=== PATIENT | female | born 1950 | race Caucasian/White ===

== ENCOUNTER 2020-11-21 15:09 | Outpatient (RCR) | payer MEDICARE, SELFPAY | END 2021-01-22 23:59 | LOC: IMMUN 15:09 | PROVIDERS: Referring Provider Family Medicine; Visit Provider Family Medicine | DX: Z23 Encounter for immunization (principal) | CPT/HCPCS: 0001A; 0002A; 91300 ==

== ENCOUNTER 2021-10-02 09:42 | Outpatient (CLI) | payer MEDICARE, SELFPAY ==
--- NOTE | 2021-10-02 09:50 | RAD_ITS ---
STUDY: X-RAY CHEST REASON FOR EXAM: Female, 71 years old. ASTHMA TECHNIQUE: PA and lateral views of the chest. COMPARISON: April 27, [address] chest FINDINGS: The lungs are clear and expanded. There is no demonstrated pleural abnormality. Normal size heart. Normal mediastinum and ericka. Normal visualized pulmonary arteries. Normal visualized aortic arch and descending thoracic aorta. There is levoscoliosis of the thoracolumbar junction. There is multilevel degenerative change. There is degenerative osteoarthritis of the bilateral shoulders. There is no demonstrated abnormality of the visualized soft tissue structures of the upper abdomen. RAD/Chest PA and Lateral IMPRESSION: No demonstrated acute cardiopulmonary process. Electronically Signed: Vanda Wang MD at 0:14 EST ,
== END 2021-10-02 23:59 | disposition home or self-care (01) ==
PROVIDERS: Referring Provider Internal Medicine Pulmonary Disease; Visit Provider Internal Medicine Pulmonary Disease
DX: J45.20 Mild intermittent asthma, uncomplicated (principal)
CPT/HCPCS: 71046

== ENCOUNTER → 2022-09-24 | Outpatient (CLI) | payer MEDICARE, SELFPAY ==
--- NOTE | 2022-09-24 12:06 | CT_ITS ---
STUDY: CT LUMBAR SPINE WITHOUT CONTRAST REASON FOR EXAM: Female, 72 years old. STENOSIS RADIATION DOSAGE (If Supplied By Facility): CTDIvol = ( 26.54 ) mGy, DLP = ( 910.39 ) mGycm TECHNIQUE: The patient was scanned in a multi detector CT scanner. High resolution transaxial imaging was performed. Images were obtained from L1 vertebrae to S1 vertebrae. Sagittal and coronal images were reconstructed. Individualized dose optimization techniques were used for this CT. COMPARISON: None FINDINGS: Normal lumbar lordosis. Marked degree of the levoconvex scoliosis. Multilevel spondylosis. L1-2: Marked degree of disc space narrowing. Spondylosis worse on the right sided midline. Facet joint osteoarthritis and hypertrophy worse on the right side. Moderate degree of right neural foraminal stenosis. L2-3: Moderate degree of disc space narrowing and spondylosis. Facet joint osteoarthritis and hypertrophy worse on the right. Moderate degree of right neural foraminal stenosis. Moderate degree of central canal stenosis. L3-4: Marked degree of disc space narrowing. Spondylosis. Facet joint osteoarthritis and hypertrophy worse on the left side with a moderate degree of left neural foraminal stenosis. Moderate degree of central canal stenosis. L4-5: Marked degree of disc space narrowing. Facet joint osteoarthritis hypertrophy worse on the left side with a severe degree of left neural foraminal stenosis. L5-S1: Moderate degree of central canal stenosis. Normal visualized paraspinous soft tissue structures. CT/Spine Lumbar without Contrast IMPRESSION: Multilevel degenerative changes, as described above. Multilevel neural foraminal central canal stenosis as described. Electronically Signed: Rich Neal MD at 13:43 EST ,
[2022-09-24 12:28] VITALS: BP 183/77; PULSE 58; RESP 16; TEMP 36.3; O2SAT 98; BMI 33.1
--- NOTE | 2022-09-24 12:37 | RAD_ITS ---
PROCEDURE: LUMBAR MYELOGRAM DATE OF EXAMINATION: 09/24/2022 INDICATION: Female, 72 years old. Low back pain. PHYSICIAN: Rich Neal M.D. CONSENT: The patient''s history and physical findings were reviewed. The lumbar myelogram procedure was discussed with the patient prior to signing a consent. SEDATION: Local anesthesia with 3 mL of 1% lidocaine was used. FLUOROSCOPY TIME (if supplied): (3:24) minutes/seconds. Injection Information: 0 Number of images obtained: 0 TECHNIQUE: Attempted lumbar puncture and myelogram procedure. Due to the patient''s marked degree of scoliosis and degenerative changes throughout the lumbar spine, access of the arachnoid space was not possible. RAD/Lumbar Myelogram IMPRESSION: Attempted lumbar myelogram. A CT scan will be performed. Electronically Signed: Rich Neal MD at 13:35 EST ,
[2022-09-24] MEDS: Lidocaine 2% (5ml sdv) 5 ML VIAL.MPF INFILT (12:45)
[2022-09-24 13:10] VITALS: BP 152/82; PULSE 56; RESP 16
--- NOTE | 2022-09-24 13:44 | NURSING ---
Dr. Neal unable to get into spinal canal to inject contrast due to pt's severe scoliosis. Pt aware myelogram was unsuccessful, pt had CT and then was discharged home. Instructions included watching out for signs of infection.
== END | disposition home or self-care (01) ==
PROVIDERS: PCP Registered Nurse
DX: M48.062 Spinal stenosis, lumbar region with neurogenic claudication (principal)
CPT/HCPCS: 62304; 72131

== ENCOUNTER 2023-03-19 08:00 | Outpatient (RCR) | payer MEDICARE, SELFPAY ==
--- NOTE | 2023-02-06 08:49 | HP.PTEVAL_ITS ---
Patient's Visit Information AMBER ORANTES is a 72 year old F referred to Physical Therapy by MATT Hudson with a diagnosis of Lumbar radiculopathy. Date of Evaluation: 02/05/23 Physical Therapist: Jose Henry DPT - Visit Plan Frequency: 3x /Week Duration: 4 Weeks Plan: Start with core and hip strengthening in pool. Pt. is familiar with the pool. Add in progressive strengthening as tolerated. - Subjective pt. is here today for her initial evaluation with diagnosis of lumbar radiculopathy. Pt. has has been having issues for a number of years, but has been progressively getting worse. Pt. has a history of scoliosis, and lumbar surgery. Pt. has doing injections a well, B knee replacements and R hip replacement. Pt. had previously worked out in local gym, but had to hold off due to B knee pain and low back pain. She met with her surgery who told her that surgery was not indicated at this point in time and he would like her to work on aquatic therapy to increase core and hip strengthening. Pt. is eager to get started. She reports constant pain in lumbar spine and RLE to her foot. Lifting and standing seem to be the worst with increasing her symptoms. She does feel weaker in her RLE, and does feel like her R leg will give out on her at times. She avoid stairs due to RLE weakness. Pt. is hopeful to reduce symptoms in order to get back to all recreational and gym activities without limitations. - Pain Lumbar spine Pain Intensity (Out of 10): 5 RLE Pain Intensity (Out of 10): 5 - Objective POSTURE: Pt. had general flexed posture. R lateral hip shift with trunk correction. PALPATION: Pt. has increased tenderness along lumbar spine and along B lumbar erector spinae. Pt. has some pain in her glute to palpation as well, R side. NEURO: Pt. has normal sensation in BLEs, decreased DTR 1+ throughout LEs. Pt. is able to rise on heels and toes. ROM: Lumbar spine: flexion min/mod loss increase NW, ext max loss increase NW, Sb mod loss B increase NW, rotation mod loss bilat increase NW. Pt. has tight B HSs as well. MMT: LLE: ankle 5/5 throughout; knee: ext 4+/5, flexion 4+/5; hip: flexion 4/5, abd 4/5. RLE: ankle 5/5 throughout; knee: ext 4/5; flexion 4/5; hip: flexion 3/5, abd 3/5. Core strength- poor. GAIT: pt. ambulates without AD, but has a marked shift with trunk correction, most likely due to her scoliosis. Pt. has decrased step length and increased lateral hip sway during stance phase. Stairs: step to pattern loading LLE only and use of 2 HR. - Balance/Special Test Scores Oswestry Low Back Score: 20 - Goals Goal 1:: LTG: Pt. to be I with HEP in aquatic setting. Goal Time Frame: 4-6 Weeks Goal 2:: STG: Pt. to have reduced pain in RLE and lumbar spine to 2-3/10 with all daily activities. Goal Time Frame: 2-4 Weeks Goal 3:: LTG: Pt. to have increased core and BLE strength by 1/2 grade throughout. Goal Time Frame: 4-6 Weeks Goal 4:: LTG: Pt. to start a progressive walking program with good tolerance. Goal Time Frame: 4-6 Weeks Goal 5:: LTG: Pt. to sleep throughout the night with 2-3/10 pain in RLE and lumbar spine. Goal Time Frame: 4-6 Weeks - Rehabilitation Potential Physical Therapy Diagnosis: Pt. has signs and symptoms consistent with lumbar radiculopathy with symptoms down her RLE. Pt. has marked loss of ROM, loss of BLE and core strength resulting in increased difficulty with all daily activities. Rehabilitation Potential: Good - Anticipated Interventions Patient/Client Instruction: Educate patient on: Condition, Plan of Care, Risk Factors, Benefits of Fitness Program For the Purpose of:: To improve decision making, To facilitate caregiver knowledge, To improve self management, To prevent re-injury, To improve ability to perform tasks related to life management Therapeutic Exercise to Include: Strength training, Power training, Body mechanics, Postural training, Flexibilty training, In an aquatic setting, Dynamic Lumbar Stabilization, Chuck Exercises For the Purpose of:: To decrease pain, To increase ROM, To improve nutrient delivery to tissue, To increase oxygenation perfusion, To improve muscle performance and motor function, To improve ability to perform ADL's, To increase tolerance to activity/condition/position, To improve performance and ind ependence with ADL's, To decrease soft tissue restriction, To increase flexibility/ROM Thank you for the opportunity to evaluate your patient. For Medicare and Medicare HMO plans, please review the plan of care and approve it. It will need to be FAXED BACK to us at [phone] for Medicare purposes. For Medicare only, by signing this I certify the plan of care. Please let me know if there are questions or concerns regarding this plan of care. Physician Signature: Date:
--- NOTE | 2023-03-06 08:30 | HP.PTREVAL ---
Re-Evaluation Intro: Hilda Mcdonnell, WELFARE CASE WORKER-C, It has been my pleasure to treat AMBER ORANTES over the last 11 visits for Lumbar radiculopathy. Please see the progress note below for an update on the physical therapy plan of care! Subjective Subjective: Pt. reports having 2/10 pain currently. Pt. reports mornings are a little bit more stiff, but loosens up as the day goes on. Objective Objective/Function: MMT: RLE: ankle 5/5 throughout; knee: ext 20.3#, flexion 16.4# LLE: ankle 5/5 throughout; knee: ext 22.9#, flexion 18.8# sleeping: pain still present but not as frequent. POSTURE: Pt. still has a lateral shift, again due to scoliosis. Cat is overall doing better. She would like to develop a land routine where she could do aquatic exercises x2 day per weeks and land x1. Plan Plan Plan: I will see cat for a few more visits working on hip and core strength on land to progress HEP. Balance/Gait/Functional tests Balance/Special Test Scores Oswestry Low Back Score: 11 Goals Goals Goal 1:: LTG: Pt. to be I with HEP in aquatic setting. Goal Time Frame: 4-6 Weeks Goal Progress: Goal Met Goal 2:: STG: Pt. to have reduced pain in RLE and lumbar spine to 2-3/10 with all daily activities. Goal Time Frame: 2-4 Weeks Goal Progress: Progressing Goal 3:: LTG: Pt. to have increased core and BLE strength by 1/2 grade throughout. Goal Time Frame: 4-6 Weeks Goal Progress: Progressing Goal 4:: LTG: Pt. to start a progressive walking program with good tolerance. Goal Time Frame: 4-6 Weeks Goal Progress: Progressing Goal 5:: LTG: Pt. to sleep throughout the night with 2-3/10 pain in RLE and lumbar spine. Goal Time Frame: 4-6 Weeks Goal Progress: Progressing Anticipated Interventions Anticipated Interventions Patient/Client Instruction: Educate patient on: Condition, Plan of Care, Risk Factors and Benefits of Fitness Program For the Purpose of:: To improve decision making, To facilitate caregiver knowledge, To improve self management, To prevent re-injury and To improve ability to perform tasks related to life management Therapeutic Exercise to Include: Strength training, Power training, Body mechanics, Postural training, Flexibilty training, In an aquatic setting, Dynamic Lumbar Stabilization and Chuck Exercises For the Purpose of:: To decrease pain, To increase ROM, To improve nutrient delivery to tissue, To increase oxygenation perfusion, To improve muscle performance and motor function, To improve ability to perform ADL's, To increase tolerance to activity/condition/position, To improve performance and independence with ADL's, To decrease soft tissue restriction and To increase flexibility/ROM Re-Evaluation Ending Re-evaluation ending: Please do not hesitate to contact me at [phone] by phone or if you have questions or concerns regarding this new plan of care! Sincerely, NICOLLE TaylorT
--- NOTE | 2023-03-19 08:33 | HP.PTDCSUM ---
Discharge Summary D/C summary: It has been my pleasure to treat AMBER ORANTES referred by Hilda Mcdonnell NP-C, with the diagnosis of Lumbar radiculopathy for a total of 13 visit(s). Discharge Date: 03/19/23 Please see the following information for a summary of their discharge status. Subjective Subjective: Pt. reports having soreness for ~ 30 minutes after last visit, but then resolved. Pt. reports no major issues this AM. Pain Lumbar spine: Pain Intensity (Out of 10): 1 RLE: Pain Intensity (Out of 10): 1 Overall Improvement % Improvement: 75 Objective Objective/Function: Pt. did well with all exercises this date. Pt. has a good aquatic and land program to complete now. Pt. reports no increase in symptoms with exercises this date. Pt. is to complete water x2 per week and land x1 going forward. At this point in time Pt. will be DC from PT to HEP. PT. consents. Goals Goal 1:: LTG: Pt. to be I with HEP in aquatic setting. Goal Progress: Goal Met Goal 2:: STG: Pt. to have reduced pain in RLE and lumbar spine to 2-3/10 with all daily activities. Goal Progress: Progressing Goal 3:: LTG: Pt. to have increased core and BLE strength by 1/2 grade throughout. Goal Progress: Goal Met Goal 4:: LTG: Pt. to start a progressive walking program with good tolerance. Goal Progress: Goal Met Goal 5:: LTG: Pt. to sleep throughout the night with 2-3/10 pain in RLE and lumbar spine. Goal Progress: Progressing Plan Plan: DC to HEP. D/C Information Discharge Comments: Pt. was treated initially in aquatic therapy then progressed to land. Pt. has good HEP for both at this point in time and was given ways to progress once ready. Pt. will be DC to those programs at this point in time. d/c sentence: If there are questions or concerns regarding this patient's physical therapy, please feel free to call me at [phone]. Thank you for the referral of this patient. Sincerely, Jose Sylvester Sipos, DPT Balance/Gait/Functional tests Balance/Special Test Scores Oswestry Low Back Score: 11
== END 2023-03-19 13:15 | disposition home or self-care (01) ==
LOC: PT 08:00
PROVIDERS: PCP Registered Nurse; Referring Provider Registered Nurse; Visit Provider Registered Nurse
DX: M54.16 Radiculopathy, lumbar region (principal)
CPT/HCPCS: 97110; 97113; 97161; 97164

== ENCOUNTER 2024-06-30 08:00 | Outpatient (RCR) | payer MEDICARE, SELFPAY ==
--- NOTE | 2024-04-12 09:00 | HP.PTEVAL_ITS ---
Patient's Visit Information Visit Information Visit Information: AMBER ORANTES is a 74 year old F referred to Physical Therapy by Dr. Nick Graham MD with a diagnosis of R reverse TSA, DOS: 03/28/24. Date of Evaluation: 04/12/24 Physical Therapist: Jose Henry DPT Visit Plan Frequency: 2x /Week Duration: 8 weeks Plan: 1)Start with Phase I and II of Santos's R RTS protocol. Starting with passive motion progressing as tolerated. Add in R elbow ROM as well. Pt's able to help with PROM at home as well. History of back surgery, difficulty lying full flat Pt. given AAROM shoulder ER and AAROM elbow flexion/ext for HEP. Added shoulder shrug, passive flexion and ER. May use ice as need for pain control. Subjective Subjective: Pt. is here today for her initial evaluation with diagnosis of R reverse TSA, DOS: 03/28/24. Pt. reports not having much pain, but is taking her pain medication as prescribed. Pt. denies N/T. She is sleeping okay, using reclining chair. Pt. reports overall doing well. Pt. is to follow up with physician in a few weeks. Pt. has been doing some passive ROM with and wrist mobility. Vonda reports having 4/10 pain in her shoulder and elbow today. She has been out of sling with her arm supported at home and has been doing some pendulums at home as well. Pt. is hopeful to get back to her pool exercises that she has been doing for her back. Pt. does have a history of Lumbar surgery as well. Pain R shoulder: Pain Intensity (Out of 10): 4 Pain Intensity Range: 2 and 6 R elbow: Pain Intensity (Out of 10): 1 Pain Intensity Range: 0 and 4 Objective Objective: POSTURE: Pt. has slight FH and thoracic kyphosis. Pt. is able to improve with VCing. R shoulder in guarded posture/ PALPATION: pt. has well healing incision. No signs of infection. She does have some marked swelling in her biceps and medial elbow. Bruising and R UT region. No signs of infection noted. NEURO: Pt. has normal sensation to light and sharp touch. DTR not tested in RUE. Normal in LUE. ROM: PROM: shoulder: flexion 90deg, ER to 5deg. Pain noted as limiting factor no hard end feel noted. Scaption 90deg. R elbow: flexion gradual improve ment to 110deg and extension lacking 8 deg. pain and tightness noted as limitations. MMT: DNT this date due to recent surgery. Balance/Special Test Scores Quick DASH Score: 79.5450 Goals Goal 1:: LTG: Pt. to be I with HEP for R shoulder PROM, AROM and eventually strengthening. Goal Time Frame: 6-8 Weeks Goal 2:: STG: Pt. to be able to sleep throughout the night without increase in R shoulder pain. Goal Time Frame: 2-4 Weeks Goal 3:: STG: Pt. to have PROM of R shoulder to 130deg of flexion, 30deg of ER at side. Goal Time Frame: 2-4 Weeks Goal 4:: LTG: Pt. to have R shoulder AROM symmetrical to L side allowing for increased ability to complete all ADLs. Goal Time Frame: 6-8 Weeks Goal 5:: LTG: Pt. to have symmetrical strength between B shoulders without increase in symptoms. Goal Time Frame: 8-12 Weeks Rehabilitation Potential Physical Therapy Diagnosis: Pt. has signs and symptoms consistent with R reverse TSA, DOS 03/28/24. Pt. has marked hypomobility, weakness, edema and difficulty with ADLs. Pt. would benefit from PT to address the above limitations progressing back to all previous activities. Rehabilitation Potential: Excellent Anticipated Interventions Patient/Client Instruction: Educate patient on: Condition, Plan of Care, Risk Factors and Benefits of Fitness Program For the Purpose of:: To improve self management, To prevent re-injury, To improve ability to perform tasks related to life management and To improve tolerance to ADL's Therapeutic Exercise to Include: Strength training, Power training, Postural training, Flexibilty training, Passive ROM, Active ROM and Scapular Strength/Stabilization For the Purpose of:: To decrease pain, To decrease swelling/inflammation, To increase ROM, To improve nutrient delivery to tissue, To increase oxygenation perfusion, To improve muscle performance and motor function, To improve ability to perform ADL's, To increase tolerance to activity/condition/position, To decrease soft tissue restriction, To increase flexibility/ROM and To improve endurance Manual Therapy Techniques to Include: Mobilization, Passive ROM and Soft tissue mobilization For the Purpose of:: To decrease pain, To decrease swelling/inflammation, To increase ROM, To improve nutrient delivery to tissue, To increase oxygenation perfusion, To improve muscle performance and motor function, To improve health of tissue, To decrease soft tissue restriction and To increase flexibility/ROM Cryotherapy (ice pack, ice massage): Yes Thermo therapy (hot pack): Yes For the Purpose of:: To decrease pain, To decrease swelling/inflammation, To increase ROM and To improve nutrient delivery to tissue Text: Thank you for the opportunity to evaluate your patient. For Medicare and Medicare HMO plans, please review the plan of care and approve it. It will need to be FAXED BACK to us at [phone] for Medicare purposes. For Medicare only, by signing this I certify the plan of care. Please let me know if there are questions or concerns regarding this plan of care. Physician Signature: Date:
--- NOTE | 2024-06-30 08:42 | HP.PTDCSUM ---
Discharge Summary D/C summary: It has been my pleasure to treat AMBER ORANTES referred by Dr. Nick Graham MD, with the diagnosis of R reverse TSA, DOS: 03/28/24 for a total of 24 visit(s). Discharge Date: Please see the following information for a summary of their discharge status. Subjective Subjective: Pt. reports being 75% better overall. She reports sleeping well. She is I with her HEP. Pt. is doing well with her land and water exercises. Pain R shoulder: Pain Intensity (Out of 10): 0 R elbow: Pain Intensity (Out of 10): 0 R hip: Pain Intensity (Out of 10): 0 Overall Improvement % Improvement: 75 Objective Objective/Function: AROM: R shoulder: flexion 140deg, abd 135deg. functional ER C5, functional IR R SI region. Pt. continues to have increased limitations with IR motions PROM: flexion 155deg, abd 145deg, ER at 90deg 70deg, IR at 90deg 30deg. MMT: R shoulder: ER 8.1#, IR 15.9#, abd 11.8#, flexion 10.7#. L shoulder ER 10.3#, flexion 14.7#, IR 17.4#, abd 13.1# Pt. is sleeping well. She does have some limitations due to her back pain, but has been able to adapt well. Pt. is overall I with all of her exercises and will be DC from PT at this point in time. She is pleased with her abilities and progress currently. Goals Goal 1:: LTG: Pt. to be I with HEP for R shoulder PROM, AROM and eventually strengthening. Goal Progress: Goal Met Goal 2:: STG: Pt. to be able to sleep throughout the night without increase in R shoulder pain. Goal Progress: Goal Met Goal 3:: STG: Pt. to have PROM of R shoulder to 130deg of flexion, 30deg of ER at side. Goal Progress: Goal Met Goal 4:: LTG: Pt. to have R shoulder AROM symmetrical to L side allowing for increased ability to complete all ADLs. Goal Progress: Goal Met Goal 5:: LTG: Pt. to have symmetrical strength between B shoulders without increase in symptoms. Goal Progress: Progressing Plan Plan: P. to be DC from PT. D/C Information d/c sentence: If there are questions or concerns regarding this patient's physical therapy, please feel free to call me at [phone]. Thank you for the referral of this patient. Sincerely, Jose Henry, DPT Balance/Gait/Functional tests Balance/Special Test Scores Quick DASH Score: 25.0000 Improvement % Improvement: 75
== END 2024-06-30 13:18 | disposition home or self-care (01) ==
LOC: PT 08:00
PROVIDERS: PCP Registered Nurse; Referring Provider Orthopaedic Surgery; Visit Provider Orthopaedic Surgery
DX: Z96.611 Presence of right artificial shoulder joint (principal); M19.011 Primary osteoarthritis, right shoulder
CPT/HCPCS: 97110; 97113; 97140; 97161; 97530